=== PATIENT | male | born 1950 | race Caucasian/White ===

== ENCOUNTER 2016-08-05 11:41 | Emergency (ER) | payer OTHER ==
[2016-08-05 12:48] VITALS: BP 125/77
--- NOTE | 2016-08-05 14:23 | RAD ---
Indication: Right leg edema. Duplex Doppler sonography of the deep venous system of the right lower extremity deep venous system was performed. Bilaterally the common femoral veins appear patent and compressible. Right proximal greater saphenous vein, proximal deep femoral vein, femoral vein, popliteal vein, posterior tibial veins and peroneal veins appear patent and compressible. Cyst in the popliteal fossa measuring 4.7 x 1.0 x 1.4 cm. IMPRESSION: NO EVIDENCE OF DEEP VENOUS THROMBOSIS IS IDENTIFIED.
--- NOTE | 2016-09-04 22:29 | UC ---
Tan Chen Aidan, scribed for Alejandra Gill DO on 08/05/16 at 1317 . Lower Extremity/Ankle HPI - HPI Summary HPI Summary: 65 y/o male presents to the Urgent Care with a complaint of acute, constant, moderate (6/10) right lower extremity pain that starts at the top of the knee and moves to the back of the calf. The pain is aggravated by standing and ambulation. Last week, he spent a very long day on his feet while at work. The following morning, he first noticed some pain in his right leg. Several days after that, the swelling began. Associated symptoms include some swelling. Pt denies any other symptoms. - History of Current Complaint Chief Complaint: UCLowerExtremity Stated Complaint: LEG COMPLAINT Time Seen by Provider: 08/05/16 13:01 Hx Obtained From: Patient Onset/Duration: Gradual Onset, Lasting Days, Still Present Severity Initially: Moderate Severity Currently: Moderate Pain Intensity: 6 Pain Scale Used: 0-10 Numeric Aggravating Factor(s): Standing, Ambulation Alleviating Factor(s): Other - unknown Able to Bear Weight: Yes Related History: Occupational Injury - Pt states that symptoms began after a long day on his feet at work - Risk Factors Gout Risk Factors: Age Over 40 - Allergies/Home Medications Allergies/Adverse Reactions: Allergies Allergy/AdvReac Type Severity Reaction Status Date / Time Penicillins [PCN] Allergy Rash Verified 09/02/16 12:28 Home Medications: Home Medications NK [No Home Medications Reported] 08/05/16 [History Confirmed 08/05/16] PMH/Surg Hx/FS Hx/Imm Hx - Additional Past Medical History Additional PMH: Hx of cellulitis. - Surgical History Surgical History: None - Family History Known Family History: Positive: Cardiac Disease - Social History Occupation: Employed Full-time Lives: With Family Alcohol Use: Occasionally Substance Use Type: None Smoking Status (MU): Never Smoked Tobacco Review of Systems Constitutional: Negative Skin: Negative Eyes: Negative ENT: Negative Respiratory: Negative Cardiovascular: Negative Gastrointestinal: Negative Genitourinary: Negative Motor: Negative Neurovascular: Negative Musculoskeletal: Arthralgia - right leg pain, Edema - right leg swelling Neurological: Negative Psychological: Negative All Other Systems Reviewed And Are Negative: Yes Physical Exam Triage Information Reviewed: Yes Appearance: Well-Appearing, No Pain Distress, Well-Nourished Vital Signs: Initial Vital Signs Temp 98.6 F 08/05/16 12:46 Pulse 74 08/05/16 12:46 Resp 16 08/05/16 12:46 BP 125/77 08/05/16 12:46 Pulse Ox 100 08/05/16 12:46 Vital Signs Reviewed: Yes Eyes: Positive: Conjunctiva Clear. Negative: Discharge ENT: Positive: Hearing grossly normal. Negative: Muffled/hoarse voice Neck exam: Normal Neck: Positive: Supple Respiratory: Positive: Lungs clear, Normal breath sounds, No respiratory distress, No accessory muscle use Cardiovascular: Positive: RRR, No Murmur Musculoskeletal Exam: Other - Asymmetrical swelling of the lower extremity, calf tenderness, mildly positive Holmans sign Neurological: Positive: Alert, Muscle Tone Normal Psychological Exam: Normal Psychological: Positive: Age Appropriate Behavior Skin Exam: Normal, Other - warm, dry, normal color Diagnostics - Radiology VENOUS DOPPLER Xray Interpretation: No Acute Changes - IMPRESSION: NO EVIDENCE OF DEEP VENOUS THROMBOSIS IS IDENTIFIED. Radiology Interpretation Completed By: Radiologist Lower Extremity Course/Dx - Course Course Of Treatment: 65 y/o male presents with RLE pain and associated swelling. He does not smoke. - Differential Dx/Diagnosis Differential Diagnosis/HQI/PQRI: DVT, Sprain, Other - lower ext edema Provider Diagnoses: edema lower ext Discharge - Discharge Plan Condition: Stable Disposition: HOME Patient Education Materials: Edema (ED) Referrals: Ari Wade MD [Primary Care Provider] - (follow up in 3-5 days) Additional Instructions: YOU WOULD LIKELY BENEFIT FROM OSTEOPATHIC TREATMENT. WE RECOMMEND THAT YOU FIND AN OSTEOPATHIC PHYSICIAN IN YOUR AREA WHO FOCUSES EXCLUSIVELY ON OSTEOPATHIC MANIPULATIVE MEDICINE WITH EXPERTISE IN MYOFACIAL, LYMPHATIC, VISCERAL AND INTEROSSEOUS WORK The documentation as recorded by the Tan trivedi Aidan accurately reflects the service I personally performed and the decisions made by , Alejandra Gill DO.
== END 2016-08-05 15:07 | disposition home or self-care (01) ==
LOC: UCEAST 11:41
DX: R60.0 Localized edema (principal); M79.661 Pain in right lower leg
CPT/HCPCS: 99211; G0463

== ENCOUNTER 2018-08-31 07:29 | Emergency (ER) | payer OTHER ==
[2018-08-31 07:38] VITALS: BP 117/75
[2018-08-31] MEDS ORDERED: Fluorescein Sodium TOPICAL* 1 MG TEST STRIP OPHTHALMIC ONE (07:49)
[2018-08-31] MEDS ORDERED: Tetracaine 0.5% OPTH.SOL 4 ML* 1 DROP BTL LEFT EYE SCH ×3 (08:00)
--- NOTE | 2018-08-31 08:00 | UC ---
Eye Complaint HPI - HPI Summary HPI Summary: His left eye started bothering him yesterday and when he woke up it was puffy. He's had no discharge. It was not matted shut. He has no visual complaint - History of Current Complaint Chief Complaint: UCEye Stated Complaint: EYE ISSUE Time Seen by Provider: 08/31/18 07:45 Hx Obtained From: Patient Onset/Duration: Gradual Onset, Lasting Hours Timing: Constant Severity Initially: Mild Severity Currently: Mild Pain Intensity: 3 Location of Injury: Conjunctiva, Eye Lid (upper) Character: Foreign Body Sensation - "irritation Aggravating Factor(s): Nothing Alleviating Factor(s): Nothing Associated Signs And Symptoms: Positive: Negative - Allergies/Home Medications Allergies/Adverse Reactions: Allergies Allergy/AdvReac Type Severity Reaction Status Date / Time Penicillins Allergy Rash Verified 08/31/18 07:38 Home Medications: Home Medications Fenofibrate 40 mg PO DAILY 08/31/18 [History Confirmed 08/31/18] Tamsulosin CAP* [Flomax CAP*] 0.4 mg PO DAILY 08/31/18 [History Confirmed ] PMH/Surg Hx/FS Hx/Imm Hx Previously Healthy: Yes GI/ History: Other - BPH - Surgical History Surgical History: Yes Surgery Procedure, Year, and Place: VASECTOMY - Social History Alcohol Use: Occasionally Substance Use Type: None Smoking Status (MU): Never Smoked Tobacco Review of Systems All Other Systems Reviewed And Are Negative: Yes Eyes: Positive: Eye Redness Physical Exam - Summary Physical Exam Summary: H is nontoxic in appearance with stable vital signs. Triage Information Reviewed: Yes Appearance: Well-Appearing Vital Signs: Initial Vital Signs Temp 97.8 F 08/31/18 07:34 Pulse 63 08/31/18 07:34 Resp 16 08/31/18 07:34 BP 117/75 08/31/18 07:34 Pulse Ox 97 08/31/18 07:34 Eyes: Positive: Conjunctiva Inflamed, Other: - There is a diffuse mild fluoroscein pickup with staining the eye. No injury is noted or foreign body. The upper tarsus is mildly inflamed.. Negative: Discharge ENT Exam: Normal Neck exam: Normal Eye Complaint Course/Dx - Course Course Of Treatment: Is difficult to tell whether it's allergic or infectious. I will give him antibiotic eyedrops as a precaution - Differential Dx/Diagnosis Provider Diagnosis: Conjunctivitis Discharge - Sign-Out/Discharge Documenting (check all that apply): Patient Departure All imaging exams completed and their final reports reviewed: No Studies - Discharge Plan Condition: Stable Disposition: HOME Patient Education Materials: Conjunctivitis (ED) Referrals: Vivek Brown MD [Medical Doctor] - Additional Instructions: Follow-up with Dr. Brown if not improving in 2-3 days or if worsening. - Billing Disposition and Condition Condition: STABLE Disposition: Home
[2018-08-31] MEDS ORDERED: Tetracaine 0.5% OPTH.SOL 4 ML* 1 DROP BTL LEFT EYE ONE (08:03)
== END 2018-08-31 08:30 | disposition home or self-care (01) ==
LOC: UCEAST 07:29
DX: H10.9 Unspecified conjunctivitis (principal); Z88.0 Allergy status to penicillin
CPT/HCPCS: 99212; A9270-GY; G0463

== ENCOUNTER 2018-09-23 14:40 | Emergency (ER) | payer OTHER ==
--- NOTE | 2018-09-23 16:37 | ED ---
Lower Extremity - HPI Summary HPI Summary: This patient is an otherwise healthy 67-year-old male with history of hypercholesterolemia varicose veins presenting to the ED with significant swelling to the left lower extremity just be DKA. Patient states he was on a long trip recently, 4 hours in the car and developed a swelling immediately following. He does state however, he was on his feet a lot prior to this as he was on vacation. He developed pain just behind the knee which extended down into the calf. Symptoms are worse with dorsiflexion and better with plantar flexion. He remains ambulatory, however pain is worse with ambulating, rating it a 3/10. He denies any chest pain or shortness of breath. No history of blood clots. No smoking history. Denies known malignancy. - History of Current Complaint Chief Complaint: EDExtremityLower Stated Complaint: "LEFT CALF SWELLING PER PT" Time Seen by Provider: 09/23/18 14:57 Hx Obtained From: Patient Mechanism Of Injury: Unknown Onset of Pain: Days Onset/Duration: Days Severity Initially: Mild Severity Currently: Mild Pain Intensity: 3 Pain Scale Used: 0-10 Numeric Timing: Constant Location: Is Discrete @ - left lower extremity btk Associated Signs And Symptoms: Positive: Swelling. Negative: Redness, Bruising , Weakness, Dizziness Aggravating Factor(s): Standing, Ambulation Alleviating Factor(s): Rest Able to Bear Weight: Yes - Allergies/Home Medications Allergies/Adverse Reactions: Allergies Allergy/AdvReac Type Severity Reaction Status Date / Time Penicillins Allergy Rash Verified 09/23/18 14:46 PMH/Surg Hx/FS Hx/Imm Hx Previously Healthy: Yes Endocrine/Hematology History: Denies: Hx Diabetes Cardiovascular History: Denies: Hx Hypertension, Hx Pacemaker/ICD History: Denies: Hx Renal Disease Sensory History: Denies: Hx Hearing Aid Psychiatric History: Denies: Hx Panic Disorder - Surgical History Surgery Procedure, Year, and Place: VASECTOMY - Immunization History Hx Pertussis Vaccination: No Immunizations Up to Date: Yes Infectious Disease History: No Infectious Disease History: Denies: Hx Clostridium Difficile, Hx Hepatitis, Hx Human Immunodeficiency Virus (HIV), Hx of Known/Suspected MRSA, Hx Shingles, Hx Tuberculosis, Hx Known/ Suspected VRE, Hx Known/Suspected VRSA, History Other Infectious Disease, Traveled Outside the [place] in Last 30 Days - Social History Occupation: Employed Part-time Lives: With Family Alcohol Use: Occasionally Hx Substance Use: No Substance Use Type: Reports: None Smoking Status (MU): Never Smoked Tobacco Review of Systems Negative: Fever, Chills, Fatigue, Skin Diaphoresis Negative: Palpitations, Chest Pain Genitourinary: Negative Positive: no symptoms reported, see HPI Positive: Edema - left lower extremity edema btk. Negative: Arthralgia, Myalgia Skin: Negative Neurological: Negative All Other Systems Reviewed And Are Negative: Yes Physical Exam Triage Information Reviewed: Yes Vital Signs On Initial Exam: Initial Vitals Temp Pulse Resp BP Pulse Ox 98.2 F 73 15 123/66 95 09/23/18 14:43 09/23/18 14:43 09/23/18 14:43 09/23/18 14:43 09/23/18 14:43 Vital Signs Reviewed: Yes Appearance: Positive: Well-Appearing, Well-Nourished Skin: Positive: Warm, Skin Color Reflects Adequate Perfusion Head/Face: Positive: Normal Head/Face Inspection Eyes: Positive: EOMI, LETTY, Conjunctiva Clear Neck: Positive: Supple, No Lymphadenopathy Respiratory/Lung Sounds: Positive: Clear to Auscultation, Breath Sounds Present Cardiovascular: Positive: RRR, Pulses are Symmetrical in both Upper and Lower Extremities Musculoskeletal: Positive: Normal, Strength/ROM Intact Neurological: Positive: Speech Normal Psychiatric: Positive: Normal, Affect/Mood Appropriate AVPU Assessment: Alert Diagnostics - Vital Signs Vital Signs Temp Pulse Resp BP Pulse Ox 09/23/18 15:00 71 96 09/23/18 14:59 73 129/76 97 09/23/18 14:56 65 95 09/23/18 14:43 98.2 F 73 15 123/66 95 - Laboratory Lab Statement: Any lab studies that have been ordered have been reviewed, and results considered in the medical decision making process. Lower Extremity Course/Dx - Course Course Of Treatment: Patient is evaluated for left lower extremity edema. On physical examination, the left lower extremity is edematous just PTK. Patient denies any other symptoms including shortness of breath. DVT US ordered. Pending. Signed out to Catie Sanderson PA-C. - Diagnoses Provider Diagnoses: Leg edema, left Discharge - Sign-Out/Discharge Documenting (check all that apply): Sign-Out Patient Signing out patient TO: Tenisha Sanderson Patient Received Moderate/Deep Sedation with Procedure: No - Discharge Plan Condition: Good Disposition: HOME Patient Education Materials: Leg Edema (ED) Referrals: Ari Wade MD [Primary Care Provider] - Additional Instructions: Use compression socks Ice Elevate Take Tylenol for pain every 6 hours Follow up with primary Return to ED if develop any new or worsening symptoms - Billing Disposition and Condition Condition: GOOD Disposition: Home
--- NOTE | 2018-09-23 17:51 | ED ---
Progress - Progress Note Progress Note: patient signed out by Ivana SANCHEZ pending u/s u/s shows: IMPRESSION: NO EVIDENCE FOR DEEP VENOUS THROMBOSIS. Course/Dx - Course Course Of Treatment: Patient is evaluated for left lower extremity edema. On physical examination, the left lower extremity is edematous just PTK. Patient denies any other symptoms including shortness of breath. patient ultrasound shows no dvt. told to elevated, use compression socks. patient understand and agrees with plan. - Diagnoses Provider Diagnoses: Leg edema, left Discharge - Sign-Out/Discharge Documenting (check all that apply): Patient Departure, Receiving Sign-Out Receiving patient FROM: Ivana Osuna Patient Received Moderate/Deep Sedation with Procedure: No - Discharge Plan Condition: Good Disposition: HOME Patient Education Materials: Leg Edema (ED) Referrals: Ari Wade MD [Primary Care Provider] - Additional Instructions: Use compression socks Ice Elevate Take Tylenol for pain every 6 hours Follow up with primary Return to ED if develop any new or worsening symptoms - Billing Disposition and Condition Condition: GOOD Disposition: Home
[2018-09-23 18:15] VITALS: BP 0/0
== END 2018-09-23 18:13 | disposition home or self-care (01) ==
LOC: ED 14:40
DX: R60.0 Localized edema (principal); E78.00 Pure hypercholesterolemia, unspecified; I83.90 Asymptomatic varicose veins of unspecified lower extremity; Z88.0 Allergy status to penicillin
CPT/HCPCS: 99282